=== PATIENT | female | born 1975 ===

== ENCOUNTER 2016-07-29 17:00 | Emergency (ER) | payer SELFPAY ==
[2016-07-29 17:13] VITALS: TEMP 99.7
[2016-07-29 18:31] VITALS: BP 120/74; PULSE 82; RESP 18; O2SAT 99
== END 2016-07-29 19:26 | disposition left against medical advice (07) ==
LOC: C.ER 17:00
DX: Z02.89 Encounter for other administrative examinations (principal); R50.9 Fever, unspecified